=== PATIENT | female | born 1985 | race Hispanic/Latino ===

== ENCOUNTER 2017-07-04 08:07 | Emergency (ER) | payer OTHER ==
[2017-07-04 08:15] VITALS: BMI 29.2
[2017-07-04 08:17] VITALS: RESP 16; TEMP 97.9
[2017-07-04] MEDS ORDERED: Sodium Chloride 0.9% 1,000 ML IV STA (08:36)
--- NOTE | 2017-07-04 08:42 | ED PDOC ---
HPI: Abdomen Time Seen by Provider: 07/04/17 08:13 Chief Complaint (Nursing): Abdominal Pain History Per: Patient History/Exam Limitations: no limitations Onset/Duration Of Symptoms: Other (x since yesterday) Current Symptoms Are (Timing): Still Present Location Of Pain/Discomfort: RUQ Additional Complaint(s): 31-year-old female, with a history of gallstones and PCOS, presents to ED complaining of RUQ abdominal pain associated with nausea and vomiting since yesterday. Pt reports pain radiates to back and right shoulder. (-) fever, (-) diarrhea, (-) urinary symptoms. PMD: Mellow Past Medical History Reviewed: Historical Data, Nursing Documentation, Vital Signs Vital Signs: Last Vital Signs Temp 97.9 F 07/04/17 08:15 Pulse 94 H 07/04/17 08:15 Resp 16 07/04/17 08:15 BP 129/87 07/04/17 08:15 Pulse Ox 98 07/04/17 11:57 - Medical History PMH: Anxiety, Depression, Gall Bladder Disease Other PMH: Polycystic ovary syndrome (PCOS), Gall stones - Surgical History Surgical History: Tonsillectomy - Family History Family History: States: Unknown Family Hx - Home Medications Home Medications: Ambulatory Orders Medication Instructions Recorded Pantoprazole Sodium [Protonix] 40 mg PO DAILY #30 tablet. 07/04/17 - Allergies Allergies/Adverse Reactions: Allergies Allergy/AdvReac Type Severity Reaction Status Date / Time No Known Allergies Allergy Verified 07/04/17 08:28 Review of Systems ROS Statement: Except As Marked, All Systems Reviewed And Found Negative Constitutional: Negative for: Fever Gastrointestinal: Positive for: Nausea, Vomiting, Abdominal Pain (RUQ). Negative for: Diarrhea Genitourinary Female: Negative for: Dysuria, Hematuria Physical Exam - Reviewed Nursing Documentation Reviewed: Yes Vital Signs Reviewed: Yes - Physical Exam Cardiovascular/Chest: Positive for: Regular Rate, Rhythm Respiratory: Positive for: Normal Breath Sounds. Negative for: Respiratory Distress Gastrointestinal/Abdominal: Positive for: Tenderness (RUQ Tenderness) Back: Positive for: Normal Inspection. Negative for: L CVA Tenderness, R CVA Tenderness Extremity: Positive for: Normal ROM (Full ROM) Neurologic/Psych: Positive for: Alert, Oriented (x 3). Negative for: Motor/ Sensory Deficits - Laboratory Results Result Diagrams: 07/04/17 09:08 05/09/18 09:08 Urine POC: Negative - ECG O2 Sat by Pulse Oximetry: 98 (RA) Pulse Ox Interpretation: Normal - Progress Re-evaluation Time: 12:14 Condition: Improved Medical Decision Making Medical Decision Making: Time; 08:35 Plan: - CMP - Lipase - ED Urine Dipstick - ED Urine - CBC - Bentyl 10 mg PO STAT - Sodium Chloride 0.9% 1,000 ml IV 100 mls/hr - Zofran ODT 4 mg PO STAT - Blood Culture - Abdomen Limited (GB Included) Ultrasound 10:43 As per RN, Pt is complaining of pain. Time: 11:14 Abdomen Limited (GB Included) Ultrasound FINDINGS: LIVER: Measures 14.8 cm in length. Patent portal vein. Portal venous flow: Hepatopetal. Unremarkable echogenicity of the liver parenchyma. No mass. No intrahepatic bile duct dilatation. GALLBLADDER: Unremarkable. No gallstones. COMMON BILE DUCT: Measures 2.9 mm. No stones. No dilatation. PANCREAS: Unremarkable as visualized. No mass. No ductal dilatation. RIGHT KIDNEY: Measures 5.9 x 11 cm in length. Normal echogenicity. No calculus, mass, or hydronephrosis. AORTA: No aneurysmal dilatation. IVC: Unremarkable. OTHER FINDINGS: None . IMPRESSION: No significant or acute findings to account for/ related to the clinical presentation. Time: 11:21 - CT Abdomen and Pelvis with IV Contrast Scribe Attestation: Documented by Devonte Reddy, acting as a scribe for Tim Neri MD Provider Scribe Attestation: All medical record entries made by the Scribe were at my direction and personally dictated by me. I have reviewed the chart and agree that the record accurately reflects my personal performance of the history, physical exam, medical decision making, and the department course for this patient. I have also personally directed, reviewed, and agree with the discharge instructions and disposition. Disposition - Clinical Impression Clinical Impression: Abdominal pain - Patient ED Disposition Is Patient to be Admitted: No Counseled Patient/Family Regarding: Studies Performed, Diagnosis, Need For Followup, Rx Given - Disposition Referrals: Reyes Lee MD, PhD [Staff Provider] - Disposition: Routine/Home Disposition Time: 12:13 Condition: FAIR Prescriptions: Pantoprazole Sodium [Protonix] 40 mg PO DAILY #30 tablet.dr Instructions: Gastritis Forms: [facility] ([place])
[2017-07-04 09:15] LABS: BASO % 0.5 % (0.0-2.0); EOS # 0.1 K/uL (0.0-0.7); EOS % 1.1 % (0.0-4.0); LYMPH # 1.7 K/uL (1.0-4.3); LYMPH % 24.2 % (20.0-40.0); MEAN CELL VOLUME 85.6 fl (81.0-99.0); MEAN CORPUSCULAR HEMOGLOBIN 29.7 pg (27.0-31.0); MEAN CORPUSCULAR HGB CONC 34.6 g/dL (33.0-37.0); MEAN PLATELET VOLUME 8.5 fl (7.2-11.7); MONO # 0.5 K/uL (0.0-0.8); MONO % 6.9 % (0.0-10.0); NEUT # 4.7 K/uL (1.8-7.0); NEUT % 67.3 % (50.0-75.0); NRBC % 0.1 % (0.0-0.0); RBC 4.72 Mil/uL (3.80-5.20); RED CELL DISTRIBUTION WIDTH 14.6 % (11.5-14.5)
[2017-07-04 09:24] LABS: CALCIUM 9.4 mg/dL (8.4-10.2); GFR AFRICAN-AMERICAN > 60; GFR NON-AFRICAN AMERICAN > 60; LIPASE 66 U/L (23-300)
[2017-07-04 09:53] LABS: ALB/GLOB RATIO 1.1 (1.0-2.1); ALBUMIN 4.3 g/dL (3.5-5.0); ALT/SGPT 21 U/L (9-52); AST/SGOT 55 U/L (14-36); BLOOD UREA NITROGEN 8 mg/dl (7-17)
--- NOTE | 2017-07-04 11:16 | US ---
HISTORY: gallstones COMPARISON: None. TECHNIQUE: Sonographic evaluation of the right upper quadrant of the abdomen. FINDINGS: LIVER: Measures 14.8 cm in length. Patent portal vein. Portal venous flow: Hepatopetal. Unremarkable echogenicity of the liver parenchyma. No mass. No intrahepatic bile duct dilatation. GALLBLADDER: Unremarkable. No gallstones. COMMON BILE DUCT: Measures 2.9 mm. No stones. No dilatation. PANCREAS: Unremarkable as visualized. No mass. No ductal dilatation. RIGHT KIDNEY: Measures 5.9 x 11 cm in length. Normal echogenicity. No calculus, mass, or hydronephrosis. AORTA: No aneurysmal dilatation. IVC: Unremarkable. OTHER FINDINGS: None . IMPRESSION: No significant or acute findings to account for/ related to the clinical presentation.
[2017-07-04] MEDS ORDERED: Iohexol 300 100 ML IJ ONE (11:30)
--- NOTE | 2017-07-04 11:59 | CT ---
PROCEDURE: CT Abdomen and Pelvis with contrast HISTORY: Right sided abd pain COMPARISON: Limited abdomen ultrasound exam also performed 07/04/2017. TECHNIQUE: Contrast dose: Omnipaque 300, 95 cc Radiation dose: Total exam DLP = 541.20 mGy-cm. This CT exam was performed using one or more of the following dose reduction techniques: Automated exposure control, adjustment of the mA and/or kV according to patient size, and/or use of iterative reconstruction technique. FINDINGS: LOWER THORAX: Unremarkable. LIVER: Mildly diminished attenuation diffusely compatible with hepatic steatosis. No discrete mass or intrahepatic biliary dilatation appreciable. GALLBLADDER AND BILE DUCTS: Partially contracted. No mural thickening or radiodense cholelithiasis. PANCREAS: Unremarkable. No gross lesion or ductal dilatation. SPLEEN: Unremarkable. ADRENALS: Unremarkable. No mass. KIDNEYS AND URETERS: Unremarkable. No hydronephrosis. No solid mass. VASCULATURE: Unremarkable. No aortic aneurysm. BOWEL: Stomach is minimally distended with retained gas and fluid. No bowel obstruction is appreciated. Liquified fecal material seen at the ascending colon extending through the hepatic flexure but without mural thickening or pericolic reaction. Finding could reflect diarrhea bone on origin though the remaining colon does not and exhibit fluid in the lumen. Further clinical correlation is advised. APPENDIX: Normal appendix. PERITONEUM: Unremarkable. No free fluid. No free air. LYMPH NODES: Unremarkable. No enlarged lymph nodes. BLADDER: Unremarkable. REPRODUCTIVE: Unremarkable. BONES: No acute fracture. OTHER FINDINGS: None. IMPRESSION: Liquid fecal material the right hemicolon extending through the hepatic flexure but not into the remainder large-bowel could be a reflection of diarrhea though colitis pattern is not clearly identified at this time. Lack of oral contrast limits evaluation. Limited hepatic steatosis noted diffusely. The remainder the examination appears unremarkable.
[2017-07-04 12:39] VITALS: BP 128/84; PULSE 82; O2SAT 97
== END 2017-07-04 12:42 | disposition home or self-care (01) ==
LOC: H.ER 08:07
DX: R10.11 Right upper quadrant pain (principal); E28.2 Polycystic ovarian syndrome; F32.9 Major depressive disorder, single episode, unspecified; F41.9 Anxiety disorder, unspecified
CPT/HCPCS: 74177; 76705; 80053; 81025; 83690; 85025; 87040; 96374; 99284; J1885; J7040; Q9967